=== PATIENT | male | born 1980 | race Two or more races ===

== ENCOUNTER 2018-01-24 03:28 | Emergency (ER) | payer BC, MEDICAID ==
[~2018-01-24] VITALS: Ht 165.1 cm; Wt 52.2 kg
--- NOTE | 2018-01-24 04:05 | NUR ---
Pt walked in with multiple laceration on the scalp and forehead while trying to get his drone down. He reports bleeding on the site prior [employer] but denies passing out. Wounds are open, well approximated and not bleeding at this time. Pt is A, O/4, walks independently with steady gait, in no apparent distress. Seen and evaluated by Dr. Conklin at .
[2018-01-24] MEDS ORDERED: TDAP [DIPH/PERTUSSIS/TET] 0.5 ML VIAL IM ONE ×3 (04:14→04:30)
--- NOTE | 2018-01-24 04:15 | NUR ---
Wound care done, pt tolerated procedure.
[2018-01-24 04:34] VITALS: BP 140/90
== END 2018-01-24 04:35 | disposition home or self-care (01) ==
LOC: ER 03:47
DX: S01.81XA Laceration without foreign body of other part of head, initial encounter (principal); W22.8XXA Striking against or struck by other objects, initial encounter; Y93.89 Activity, other specified; Y92.89 Other specified places as the place of occurrence of the external cause; Y99.8 Other external cause status
CPT/HCPCS: 12011; 90471; 90715; 99284; A4606; Z7610